=== PATIENT | male | born 1985 | race Caucasian/White ===

== ENCOUNTER 2020-09-20 12:06 | Emergency (ER) | payer OTHER, SELFPAY ==
[2020-09-20 12:09] VITALS: BP 94/59; PULSE 109; RESP 28; TEMP 36.5; O2SAT 100; BMI 35.2
--- NOTE | 2020-09-20 12:12 | CT_ITS ---
WS: [id number] CT ABDOMEN AND PELVIS WITH CONTRAST HISTORY: RUQ abd tenderness. n/v/d TECHNIQUE: Imaging performed of the abdomen and pelvis with IV contrast. Single phase imaging of the abdomen. Coronal and sagittal reformats are submitted. All CT scans at [facility] use at least one of these dose optimization techniques: automated exposure control; mA and/or kV adjustment per patient size (includes targeted exams where dose is matched to clinical indication); or iterativ e reconstruction. IV CONTRAST: Omnipaque 300; 95 mL IV. Oral contrast: No DLP: 1936.61 mGy.cm COMPARISON: None available. Lower thorax: Lung bases are clear. Heart is normal size. No hiatal hernia. Liver/biliary system: Mild hepatomegaly. No mass or bile duct dilatation. Gallbladder: Normal. No gallstones or wall thickening. No pericholecystic fluid. Pancreas: Normal size pancreas and pancreatic duct. No adjacent inflammation. Spleen: Normal size spleen. No mass or infarct. Adrenal glands: Normal. Right kidney: Normal. Left kidney: Normal. Aorta: Normal. Lymphadenopathy: None. Free fluid: None. GI tract: Prior appendectomy. Very mild mucosal edema in the ascending colon with no free fluid or ad jacent colonic inflammation. Abdominal wall: Unremarkable abdominal wall. No hernia. Pelvis: No free fluid or adenopathy within the pelvis. Bones: Unremarkable. CT/CT abdomen pelvis w con* [id number] IMPRESSION: 1. Mild ascending colon colitis. No free fluid or free air. 2. Prior appendectomy. 3. Mild hepatomegaly.
--- NOTE | 2020-09-20 12:12 | XR_ITS ---
WS: [id number] Portable AP upright chest, 09/20/2020 Clinical Data: reduced breath sounds Comparison: None. Findings: No nodules, masses or effusions are seen. The heart is normal. The pulmonary vascularity is not increased. No pneumonia or pneumothorax is seen. There are monitor leads overlying the chest wal l. XR/XR chest 1V portable [id number] Impression: Negative chest.
--- NOTE | 2020-09-20 12:14 | US_ITS ---
WS: [id number] RIGHT UPPER QUADRANT ULTRASOUND HISTORY: RUQ abd pain COMPARISON: None available. Liver: 17.9 cm in length. Mildly enlarged liver with mild hepatic steatosis. No mass or bile duct dil atation. Gallbladder: Normally distended gallbladder with no stones or wall thickening. CBD: 0.3 cm Pancreas: Head and the pancreas is obscured by bowel gas. Body is negative. Right kidney: 11.8 cm in length. Normal size and echogenicity. No hydronephrosis or mass. Aorta and IVC: Unremarkable abdominal aorta and IVC. No ascites. US/US abdomen limited [id number] IMPRESSION: 1. Mild hepatic steatosis and hepatomegaly. 2. Normal gallbladder.
[2020-09-20] MEDS: sodium chloride 0.9% 1,000 ML 999 ML IV (12:38)
[2020-09-20 12:39] LABS: Basophils # 0.1 10^3/uL (0.0-0.1); Basophils % 0.4 %; Eosinophils % 0.1 %; Hematocrit 43.7 % (42.0-52.0); Hemoglobin 15.2 g/dL (11.7-16.6); Lymphocytes # 1.9 10^3/uL (0.8-4.8); Mean Corpuscular HGB Conc 34.8 g/dL (30.0-36.0); Mean Corpuscular Hemoglobin 32.6 pg (28.0-34.0); Mean Corpuscular Volume 93.8 fL (80-94); Mean Platelet Volume 9.4 fL (7.4-10.4); Monocytes % 5.6 %; Neutrophils # 14.47 10^3/uL (1.8-7.7); Neutrophils % 82.2 %; Nucleated Red Blood Cells % 0 %; Platelet Count 309 10^3/cmm (130-400); Red Blood Count 4.66 10^6/uL (4.1-5.3); Red Cell Distribution Width 13.3 % (12.1-15.1); White Blood Count 17.6 10^3/uL (4.0-10.0)
[2020-09-20] MEDS: promethazine 25 mg/mL SDV 1 mL IM (12:40)
[2020-09-20] MEDS: ketorolac 30 mg/mL INJ 15 MG IVP (12:40)
[2020-09-20] MEDS: vancomycin 1,500 MG/300 ML PIGGYBACK 200 MG IV (12:56)
[2020-09-20] MEDS: iohexol 300 mg/mL 100 mL Btl IV (13:13)
[2020-09-20 13:16] LABS: Lactic Sepsis W/Reflex 2.5 mmol/L (0.5-2.2)
[2020-09-20 13:17] LABS: Alanine Aminotransferase 39 U/L (0-41); Albumin Level 4.8 g/dL (3.5-5.2); Alkaline Phosphatase 51 IU/L (40-130); Anion Gap 20.9 (5-19); Aspartate Amino Transferase 36 U/L (0-40); Blood Urea Nitrogen 33 mg/dL (6-20); Calcium 9.9 mg/dL (8.5-10.5); Carbon Dioxide 21 mmol/L (22-29); Chloride 100 mmol/L (98-107); Globulin 2.9 g/dL (1.3-4.6); Glomerular Filtration Rate 40.3 mL/min (90-130); Glucose 132 mg/dL (65-115); Lipase 68 U/L (13-60); Osmolality Calculated 295 mOsm/kg (285-295); Potassium 3.9 mmol/L (3.5-5.1); Sodium 138 mmol/L (136-145); Total Bilirubin 0.9 mg/dL (0.15-1.2); Total Protein 7.7 g/dL (6.6-8.7)
[2020-09-20 13:21] LABS: Alcohol Level < 10 mg/dL (0-10)
[2020-09-20 13:45] VITALS: BP 148/76; PULSE 105; RESP 18; O2SAT 98
[2020-09-20 14:25] LABS: Reflex Lactate Order REFLEX LACTIC ORDERD
[2020-09-20 14:32] VITALS: BP 138/52; PULSE 93; RESP 19; O2SAT 100
[2020-09-20 14:46] LABS: Add Urine Microscopic? YES; Bilirubin Urine Neg (Negative); Blood Urine 2+ (Negative); Glucose Urine UA Norm (Normal); Ketones Urine Negative (Negative); Leukocyte Esterase Urine Negative (Negative); Nitrate Urine Negative (Negative); Protein Urine 1+ (Negative); Specific Gravity, Urine 1.007 (1.005-1.030); Urine Appearance Hazy (CLEAR); Urine Color Yellow (Yellow); Urobilinogen Urine Norm (Negative); pH Urine 7 (5-7)
[2020-09-20 14:51] LABS: Amphetamines Screen Urine Negative (Negative); Barbiturates Screen Urine Negative (Negative); Benzodiazepines Screen Urine Negative (Negative); Cocaine Screen Urine Negative (Negative); Opiate Screen Urine Negative (Negative); PCP Screen Urine Negative (Negative); THC Screen Urine Negative (Negative)
[2020-09-20 15:05] LABS: Bacteria Urine TRACE /hpf; Mucus Urine 1+ /hpf; RBC Urine RARE /hpf (0-2); Squamous Epithelial Cell Urine 0-4 /hpf (0-5); WBC Urine 0-4 /hpf (0-5)
[2020-09-20 15:50] LABS: Lactic Acid level (Lactate) 1.3 mmol/L (0.5-2.2)
--- NOTE | 2020-09-20 16:03 | W.ED.GENADLT ---
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 He says he comes to the ER after he felt lightheaded and passed out. He says he passed out for maybe a few seconds at most and came to. Complains of right-sided abdominal pain. Also nausea. He reported one episode of a black stool but has had a normal stool since. Associated symptoms: Deny chest pain, confusion, dyspnea, headache(s), nausea, rash, palpitations or vomiting Review of Systems General: Reports: 10 or more systems reviewed and unremarkable except in HPI and below Const: Denies: fatigue Eyes: Denies: change in vision, blurry vision or eye redness ENMT: Denies: throat pain, swelling of lips/tongue, ear or mastoid pain or nasal congestion Card: Denies: chest pain, palpitations, irregular heart rhythm, edema, dyspnea on exertion or orthopnea Resp: Denies: dyspnea, productive cough or non-productive cough GI: Reports: abdominal pain; Denies: nausea, vomiting, diarrhea or GI cramping : Denies: flank pain, urinary frequency or urinary urgency Musc: Denies: neck pain, back pain, extremity pain, joint pain, joint redness, limited range of motion or muscle weakness Skin/Breast: Denies: rash, pruritus, erythema, skin pain or skin tenderness Neuro: Denies: headache(s), numbness in extremities, weakness in extremities, sensory changes, difficulty walking, dizziness, confusion or Slurred speech present Psych: Denies: anxiety or depression Endo: Denies: polyuria All/Imm: Denies: urticaria, throat swelling or tongue swelling PFSH ED PFSH: Social History (Updated 09/20/20 @ 12:17 by Austyn Lux RN) Smoking and tobacco status: never smoked Alcohol intake: current Alcohol intake frequency: few times a week Substance/Drug Use: never Physical Exam Const: COMMON NORMALS: no acute distress, average body habitus, patient oriented x3, no limitations, healthy appearing, alert and well nourished GENERAL APPEARANCE: cooperative, comfortable, well kempt and well developed ORIENTATION/CONSCIOUSNESS: Yes awake, Yes oriented to person, Yes oriented to place and Yes oriented to time HENMT: COMMON NORMALS: normocephalic, external ears normal and Normal external nose present HEAD & SCALP: normal to inspection and normocephalic NOSE: Normal external nose present EXTERNAL EAR: Yes external ears normal MOUTH: Normal oral and palatal mucosa present THROAT: posterior oropharynx normal Eye: COMMON NORMALS: Equal, round and reactive pupils present and EOMs intact bilaterally GENERAL EYE: appearance normal, both eyes and all related structures PUPIL: Yes Equal, round and reactive pupils present Neck/C-Spine: COMMON NORMALS: full ROM, no lymphadenopathy, no meningeal signs and no JVD GENERAL: Yes normal visual inspection Lymph: LYMPHATIC: no lymphadenopathy noted Chest: COMMONS NORMALS: normal inspection of the chest and normal palpation of entire chest wall Resp: COMMON NORMALS: normal respiratory effort, No retractions, No use of accessory muscles, clear to auscultation bilaterally and percussion normal EFFORT & INSPECTION: Yes able to speak in complete sentences AUSCULTATION: clear to auscultation bilaterally PERCUSSION: percussion normal Cardio: COMMON NORMALS: no JVD, regular rate, regular rhythm, S1 normal heart sound present, S2 normal heart sound present and Peripheral pulses 2+ throughout RATE: regular rate RHYTHM: regular rhythm HEART SOUNDS: S1 normal heart sound present and S2 normal heart sound present PERIPHERAL PULSES: Peripheral pulses 2+ throughout GI: COMMON NORMALS: Normal to inspection, nondistended, normoactive bowel sounds present, Soft to palpation and no masses INSPECTION: Yes normal to inspection PALPATION: Yes Soft to palpation and Yes Tenderness to palpation present (GI) GI image (male): 1. Mild abdominal tenderness : COMMON NORMALS: Yes no CVA tenderness BLADDER/KIDNEY EXAM: Yes no CVA tenderness Back/Pelvis: COMMON NORMALS: no CVA tenderness, thoracic and lumbar spine normal to inspection, no thoracic nor lumbar tenderness and thoraco-lumbar ROM normal Extremity: COMMON NORMALS: normal to inspection, full ROM, capillary refill normal, no joint enlargement and no pedal edema GENERAL: Yes normal exam except as noted Neuro: COMMON NORMALS: patient oriented x3, CN's II-XII intact bilaterally, moves all extremities, no focal motor deficits, no sensory deficits noted and gait normal SENSORIUM/ORIENTATION: Yes alert, Yes oriented to person, Yes oriented to place and Yes oriented to time MENINGEAL SIGNS: Yes no meningeal signs Psych: COMMON NORMALS: mental status grossly normal, Normal thought process present, cooperative, normal affect and speech normal APPEARANCE: Yes well kempt ATTITUDE: Yes calm SPEECH: Yes normal speech THOUGHT PROCESS: Normal thought process present Skin: COMMON NORMALS: no rashes or lesions noted GENERAL SKIN EXAM: no rashes or lesions noted Course Vital Signs: Vital signs: Vital Signs Temperature 97.7 F 09/20/20 12:09 Pulse Rate 93 09/20/20 14:32 Respiratory Rate 19 H 09/20/20 14:32 Blood Pressure 138/52 09/20/20 14:32 Pulse Oximetry 100 09/20/20 14:32 MDM - General Adult MDM Narrative: Medical decision making narrative: Patient came to the ER after an episode he is awake with mildly low blood pressure 94/59 and tachycardia 109. He was given 2 L IV fluids and his white count was 17.[address] shows Right-sided colitis which is consistent with his abdominal pain that he was feeling. He feels much improved after fluids. Creatinine mildly elevated 1.9 with BUN 33. Likely from dehydration consistent with his syncope. He will be discharged with Cipro and Flagyl and told to drink lots of fluids and follow-up with primary care physician in a couple days. ER with worsening symptoms Lab Data: Labs: Lab Results 09/20/20 09/20/20 09/20/20 Range/Units 12:30 12:30 12:30 WBC 17.6 H (4.0-10.0) 10^3/ uL RBC 4.66 (4.1-5.3) 10^6/u L Hgb 15.2 (11.7-16.6) g/dL Hct 43.7 (42.0-52.0) % MCV 93.8 (80-94) fL MCH 32.6 (28.0-34.0) pg MCHC 34.8 (30.0-36.0) g/dL RDW 13.3 (12.1-15.1) % Plt Count 309 (130-400) 10^3/c mm MPV 9.4 (7.4-10.4) fL Neut % (Auto) 82.2 % Lymph % (Auto) 11.0 % [place] % (Auto) 5.6 % Eos % (Auto) 0.1 % Baso % (Auto) 0.4 % Neut # (Auto) 14.47 H (1.8-7.7) 10^3/u L Lymph # (Auto) 1.9 (0.8-4.8) 10^3/u L [place] # (Auto) 1.0 H (0.2-0.9) 10^3/u L Eos # (Auto) 0.0 (0.0-0.8) 10^3/u L Baso # (Auto) 0.1 (0.0-0.1) 10^3/u L Nucleated RBC % (a uto) 0 % Nucleated RBCs # 0.0 /100WBC Sodium 138 (136-145) mmol/L Potassium 3.9 (3.5-5.1) mmol/L Chloride 100 (98-107) mmol/L Carbon Dioxide 21 L (22-29) mmol/L Anion Gap 20.9 H (5-19) BUN 33 H (6-20) mg/dL Creatinine 1.9 H (0.7-1.2) mg/dL GFR Calculation 40.3 L (90-130) mL/min Glucose 132 H (65-115) mg/dL Calculated Osmolal ity 295 (285-295) mOsm/k g Lactic Acid 2.5 H (0.5-2.2) mmol/L Lactic Acid (Sepsi s) (0.5-2.2) mmol/L Calcium 9.9 (8.5-10.5) mg/dL Total Bilirubin 0.9 (0.15-1.2) mg/dL AST 36 (0-40) U/L ALT 39 (0-41) U/L Alkaline Phosphata se 51 (40-130) IU/L Total Protein 7.7 (6.6-8.7) g/dL Albumin 4.8 (3.5-5.2) g/dL Globulin 2.9 (1.3-4.6) g/dL Lipase 68 H (13-60) U/L Urine Color (Yellow) Urine Appearance (CLEAR) Urine pH (5-7) Ur Specific Gravit y (1.005-1.030) Urine Protein (Negative) Urine Glucose (UA) (Normal) Urine Ketones (Negative) Urine Blood (Negative) Urine Nitrate (Negative) Urine Bilirubin (Negative) Urine Urobilinogen (Negative) mg/dL Ur Leukocyte [place] ase (Negative) Urine RBC (0-2) /hpf Urine WBC (0-5) /hpf Ur Squamous Epith Cells (0-5) /hpf Amorphous Sediment Urine Bacteria (NONE) /hpf Urine Mucus /hpf Urine Opiates Scre en (Negative) ng/mL Ur Barbiturates Sc reen (Negative) ng/mL Ur Phencyclidine S crn (Negative) ng/mL Ur Amphetamines Sc reen (Negative) ng/mL U Benzodiazepines Scrn (Negative) ng/mL Urine Cocaine Scre en (Negative) ng/mL U Marijuana (THC) Screen (Negative) ng/mL Ethyl Alcohol < 10 (0-10) mg/dL 09/20/20 09/20/20 09/20/20 Range/Units 14:34 14:34 15:10 WBC (4.0-10.0) 10^3/ uL RBC (4.1-5.3) 10^6/u L Hgb (11.7-16.6) g/dL Hct (42.0-52.0) % MCV (80-94) fL MCH (28.0-34.0) pg MCHC (30.0-36.0) g/dL RDW (12.1-15.1) % Plt Count (130-400) 10^3/c mm MPV (7.4-10.4) fL Neut % (Auto) % Lymph % (Auto) % [place] % (Auto) % Eos % (Auto) % Baso % (Auto) % Neut # (Auto) (1.8-7.7) 10^3/u L Lymph # (Auto) (0.8-4.8) 10^3/u L [place] # (Auto) (0.2-0.9) 10^3/u L Eos # (Auto) (0.0-0.8) 10^3/u L Baso # (Auto) (0.0-0.1) 10^3/u L Nucleated RBC % (a uto) % Nucleated RBCs # /100WBC Sodium (136-145) mmol/L Potassium (3.5-5.1) mmol/L Chloride (98-107) mmol/L Carbon Dioxide (22-29) mmol/L Anion Gap (5-19) BUN (6-20) mg/dL Creatinine (0.7-1.2) mg/dL GFR Calculation (90-130) mL/min Glucose (65-115) mg/dL Calculated Osmolal ity (285-295) mOsm/k g Lactic Acid (0.5-2.2) mmol/L Lactic Acid (Sepsi s) 1.3 (0.5-2.2) mmol/L Calcium (8.5-10.5) mg/dL Total Bilirubin (0.15-1.2) mg/dL AST (0-40) U/L ALT (0-41) U/L Alkaline Phosphata se (40-130) IU/L Total Protein (6.6-8.7) g/dL Albumin (3.5-5.2) g/dL Globulin (1.3-4.6) g/dL Lipase (13-60) U/L Urine Color Yellow (Yellow) Urine Appearance Hazy A (CLEAR) Urine pH 7 (5-7) Ur Specific Gravit y 1.007 (1.005-1.030) Urine Protein 1+ H (Negative) Urine Glucose (UA) Norm (Normal) Urine Ketones Negative (Negative) Urine Blood 2+ H (Negative) Urine Nitrate Negative (Negative) Urine Bilirubin Neg (Negative) Urine Urobilinogen Norm (Negative) mg/dL Ur Leukocyte [place] ase Negative (Negative) Urine RBC Rare (0-2) /hpf Urine WBC 0-4 H (0-5) /hpf Ur Squamous Epith Cells 0-4 H (0-5) /hpf Amorphous Sediment Not Reportable Urine Bacteria Trace (NONE) /hpf Urine Mucus 1+ /hpf Urine Opiates Scre en Negative (Negative) ng/mL Ur Barbiturates Sc reen Negative (Negative) ng/mL Ur Phencyclidine S crn Negative (Negative) ng/mL Ur Amphetamines Sc reen Negative (Negative) ng/mL U Benzodiazepines Scrn Negative (Negative) ng/mL Urine Cocaine Scre en Negative (Negative) ng/mL U Marijuana (THC) Screen Negative (Negative) ng/mL Ethyl Alcohol (0-10) mg/dL Discharge Plan Discharge Patient Disposition: Home Clinical Impression: Syncope, Acute dehydration, Colitis, Acute kidney injury Condition: Stable Prescriptions: New ciprofloxacin HCl 500 mg tablet 500 mg PO Q12H 10 Days Qty: 20 RF: 0 Flagyl 500 mg tablet 500 mg PO BID 10 Days Qty: 20 RF: 0 No Action Aspir-81 81 mg Tablet,Delayed Release (Dr/Ec) 81 mg PO BEDTIME RF: 0 ibuprofen 200 mg Tablet 400 mg PO PRN RF: 0 Discharge Orders: Discharge ED (Routine); Ordered 09/20/20 Ordered By: Justin Smith Discharge Diet: Advance as tolerated Discharge Activity: Resume usual activity Patient Instructions: Opioid Safety Activity Restrictions/Additional Instructions: You have an episode of colitis and dehydration causing you to pass out briefly. Please drink lots of fluids, take the antibiotics as directed, and have your blood work including your kidneys and white blood cell count rechecked in a couple days by your primary care physician. Return to the ER at anytime with worsening symptoms and we will reevaluate and treat you. Please make sure to get your kidneys rechecked as if you do not and they worsen you could require dialysis. Coding Level of Care Code ED Metal Alloy Scientist for Mayank Fwd Exam Comprehensive
[2020-09-20 16:43] VITALS: BP 136/82; PULSE 96; RESP 17; O2SAT 100
== END 2020-09-20 16:44 | disposition home or self-care (01) ==
PROVIDERS: Emergency Provider Family Medicine
DX: R55 Syncope and collapse (principal); E86.0 Dehydration; K52.9 Noninfective gastroenteritis and colitis, unspecified; N17.9 Acute kidney failure, unspecified; Z79.82 Long term (current) use of aspirin
CPT/HCPCS: 36415; 71045; 74177; 76705; 80053; 80306; 80307; 81001; 83605; 83690; 85025; 96365; 96372; 96375; 99284; J1885; J2550; J3370; J7030; Q9967

== ENCOUNTER → 2021-01-02 09:12 | Outpatient (BNVA) | payer OTHER, SELFPAY | PROVIDERS: Visit Provider Nurse Practitioner Family | DX: Z20.822 Contact with and (suspected) exposure to COVID-19 (principal); Z11.52 Encounter for screening for COVID-19 | CPT/HCPCS: 87635 ==

== ENCOUNTER 2022-11-05 22:34 | Inpatient (IN) | payer MEDICAID, SELFPAY ==
[2022-11-05] VITALS (9 sets, daily range): BP systolic 160–181; BP diastolic 102–131; PULSE 88–100; RESP 18; TEMP 37; O2SAT 90–96; BMI 35.9
--- NOTE | 2022-11-05 22:40 | W.ED.PSYCHS ---
HPI - Psych General: Chief Complaint: Psychiatric Symptoms Stated Complaint: SI/ETOH Time Seen by Provider: 11/05/22 22:35 Source: patient and EMS Mode of arrival: EMS Limitations: no limitations History of Present Illness: 28-year-old male who is here by EMS been drinking heavily over the last 24 hours per EMS he is drank three quarters of a bottle of whiskey per EMS family called because he states he is in a kill himself and had a gun and put it in his mouth. Per EMS he was combative in route they had to give him 2 of Ativan he is now sedated he is answering some questions but will not answer many at this time. Associated symptoms: Reports depression and suicidal ideation Review of Systems Const: Denies: fever(s) or chills ENMT: Denies: throat pain or dental pain Card: Denies: chest pain Resp: Denies: dyspnea GI: Denies: abdominal pain, nausea, vomiting or diarrhea Musc: Denies: neck pain or back pain Skin/Breast: Denies: rash Neuro: Denies: headache(s) Psych: Reports: depression and suicidal ideation PFS ED PFSH: Social History Smoking and tobacco status: never smoked Alcohol intake: current Alcohol intake frequency: few times a week Substance/Drug Use: never Physical Exam Const: COMMON NORMALS: patient oriented x3 OTHER: intoxicated HENMT: COMMON NORMALS: normocephalic and atraumatic HEAD & SCALP: normocephalic and atraumatic Eye: COMMON NORMALS: Equal, round and reactive pupils present PUPIL: Yes Equal, round and reactive pupils present Neck/C-Spine: COMMON NORMALS: full ROM and supple Chest: COMMONS NORMALS: normal inspection of the chest and normal palpation of entire chest wall Resp: COMMON NORMALS: normal respiratory effort, No retractions, No use of accessory muscles and clear to auscultation bilaterally AUSCULTATION: clear to auscultation bilaterally Cardio: COMMON NORMALS: regular rate, regular rhythm and No murmurs present (Cardio) RATE: regular rate RHYTHM: regular rhythm GI: COMMON NORMALS: Normal to inspection, nondistended, normoactive bowel sounds present, Soft to palpation, non-tender and no masses PALPATION: Yes Soft to palpation Extremity: COMMON NORMALS: normal to inspection and full ROM Neuro: COMMON NORMALS: patient oriented x3, moves all extremities and no focal motor deficits Psych: COMMON NORMALS: mental status grossly normal and Normal thought process present THOUGHT PROCESS: Normal thought process present THOUGHT CONTENT: Yes Suicidality present Skin: COMMON NORMALS: no rashes or lesions noted and no wounds GENERAL SKIN EXAM: no rashes or lesions noted Course Vital Signs: Vital signs: Vital Signs Temperature 98.6 F 11/05/22 22:34 Pulse Rate 86 11/06/22 04:30 Respiratory Rate 14 11/06/22 04:00 Blood Pressure 157/102 11/06/22 04:30 Pulse Oximetry 97 11/06/22 03:45 Oxygen Delivery Me thod Room Air 11/06/22 03:45 MDM - Psych Medical Decision Making Patient presents for suicidal ideation along with alcohol intoxication patient's been medically cleared spoke to the psychiatrist and will admit at this time. Medical Records I reviewed the patient's medical records. Lab Data I reviewed the patient's lab results. 11/05/22 22:41 11/05/22 22:41 Radiology Impressions Chest X-Ray 11/06/22 02:35 IMPRESSION: 1. No definite CHF or pneumonia. 2. Other findings discussed above. Laboratory Results WBC 9.1 10^3/uL (4.0-10.0) 11/05/22 22:41 RBC 4.58 10^6/uL (4.1-5.3) 11/05/22 22:41 Hgb 15.6 g/dL (11.7-16.6) 11/05/22 22:41 Hct 43.2 % (42.0-52.0) 11/05/22 22:41 MCV 94.3 fl (80-94) H 11/05/22 22:41 MCH 34.1 pg (28.0-34.0) H 11/05/22 22:41 MCHC 36.1 g/dL (30.0-36.0) H 11/05/22 22:41 RDW 12.7 % (12.1-15.1) 11/05/22 22:41 Plt Count 419 10^3/cmm (130-400) H 11/05/22 22:41 MPV 8.2 fL (7.4-10.4) 11/05/22 22:41 Neut % (Auto) 69.4 % 11/05/22 22:41 Lymph % (Auto) 21.9 % 11/05/22 22:41 [place] % (Auto) 6.6 % 11/05/22 22:41 Eos % (Auto) 0.8 % 11/05/22 22:41 Baso % (Auto) 0.9 % 11/05/22 22:41 Neut # (Auto) 6.28 10^3/uL (1.8-7.7) 11/05/22 22:41 Lymph # (Auto) 2.0 10^3/uL (0.8-4.8) 11/05/22 22:41 [place] # (Auto) 0.6 10^3/uL (0.2-0.9) 11/05/22 22:41 Eos # (Auto) 0.1 10^3/uL (0.0-0.8) 11/05/22 22:41 Baso # (Auto) 0.1 10^3/uL (0.0-0.1) 11/05/22 22:41 Nucleated RBC % (auto) 0 % 11/05/22 22:41 Nucleated RBCs # 0.0 /100WBC 11/05/22 22:41 Sodium 143 mmol/L (136-145) 11/05/22 22:41 Potassium 3.6 mmol/L (3.5-5.1) 11/05/22 22:41 Chloride 102 mmol/L (98-107) 11/05/22 22:41 Carbon Dioxide 24 mmol/L (22-29) 11/05/22 22:41 Anion Gap 20.6 (5-19) H 11/05/22 22:41 BUN 7 mg/dL (6-20) 11/05/22 22:41 Creatinine 0.8 mg/dL (0.7-1.2) 11/05/22 22:41 GFR Calculation 108.2 mL/min (90-130) 11/05/22 22:41 Glucose 147 mg/dL (65-115) H 11/05/22 22:41 Calculated Osmolality 297 mOsm/kg (285-295) H 11/05/22 22:41 Calcium 8.4 mg/dL (8.5-10.5) L 08/09/23 22:41 Total Bilirubin 0.5 mg/dL (0.15-1.2) 11/05/22 22:41 AST 59 U/L (0-40) H 11/05/22 22:41 ALT 59 U/L (0-41) H 11/05/22 22:41 Alkaline Phosphatase 73 U/L (40-130) 11/05/22 22:41 Total Protein 7.7 g/dL (6.6-8.7) 11/05/22 22:41 Albumin 4.4 g/dL (3.5-5.2) 11/05/22 22:41 Globulin 3.3 g/dL (1.3-4.6) 11/05/22 22:41 Lipase 53 U/L (13-60) 11/05/22 22:41 Salicylates 1.1 mg/dL (3-10) L 11/05/22 22:41 Urine Opiates Screen Negative ng/mL (Negative) 11/05/22 22:51 Acetaminophen 6.9 ug/mL (10-30) L 11/05/22 22:41 Ur Barbiturates Screen Negative ng/mL (Negative) 11/05/22 22:51 Ur Phencyclidine Scrn Negative ng/mL (Negative) 11/05/22 22:51 Ur Amphetamines Screen Negative ng/mL (Negative) 11/05/22 22:51 U Benzodiazepines Scrn Negative ng/mL (Negative) 11/05/22 22:51 Urine Cocaine Screen Negative ng/mL (Negative) 11/05/22 22:51 U Marijuana (THC) Screen Negative ng/mL (Negative) 11/05/22 22:51 Ethyl Alcohol 306 mg/dL (0-10) H* 11/05/22 22:41 Discharge Plan Discharge Patient Disposition: Admitted As Inpatient Clinical Impression: Suicidal ideation, Alcohol intoxication Condition: Stable Coding Level of Care Code ED Press Operator Printing for Mayank Topete
[2022-11-05 22:47] LABS: Basophils # 0.1 10^3/uL (0.0-0.1); Basophils % 0.9 %; Eosinophils # 0.1 10^3/uL (0.0-0.8); Eosinophils % 0.8 %; Hematocrit 43.2 % (42.0-52.0); Hemoglobin 15.6 g/dL (11.7-16.6); Lymphocytes % 21.9 %; Mean Corpuscular HGB Conc 36.1 g/dL (30.0-36.0); Mean Corpuscular Hemoglobin 34.1 pg (28.0-34.0); Mean Corpuscular Volume 94.3 fl (80-94); Mean Platelet Volume 8.2 fL (7.4-10.4); Monocytes # 0.6 10^3/uL (0.2-0.9); Monocytes % 6.6 %; Neutrophils # 6.28 10^3/uL (1.8-7.7); Neutrophils % 69.4 %; Nucleated Red Blood Cells % 0 %; Platelet Count 419 10^3/cmm (130-400); Red Blood Count 4.58 10^6/uL (4.1-5.3); Red Cell Distribution Width 12.7 % (12.1-15.1); White Blood Count 9.1 10^3/uL (4.0-10.0)
[2022-11-05 23:10] LABS: Acetaminophen 6.9 ug/mL (10-30); Alanine Aminotransferase 59 U/L (0-41); Albumin Level 4.4 g/dL (3.5-5.2); Alkaline Phosphatase 73 U/L (40-130); Anion Gap 20.6 (5-19); Aspartate Amino Transferase 59 U/L (0-40); Blood Urea Nitrogen 7 mg/dL (6-20); Calcium 8.4 mg/dL (8.5-10.5); Carbon Dioxide 24 mmol/L (22-29); Chloride 102 mmol/L (98-107); Globulin 3.3 g/dL (1.3-4.6); Glomerular Filtration Rate 108.2 mL/min (90-130); Glucose 147 mg/dL (65-115); Osmolality Calculated 297 mOsm/kg (285-295); Potassium 3.6 mmol/L (3.5-5.1); Salicylate 1.1 mg/dL (3-10); Sodium 143 mmol/L (136-145); Total Bilirubin 0.5 mg/dL (0.15-1.2); Total Protein 7.7 g/dL (6.6-8.7)
[2022-11-05 23:30] LABS: Alcohol Level 306 mg/dL (0-10)
[2022-11-05 23:31] LABS: Amphetamines Screen Urine Negative (Negative); Barbiturates Screen Urine Negative (Negative); Benzodiazepines Screen Urine Negative (Negative); Cocaine Screen Urine Negative (Negative); Opiate Screen Urine Negative (Negative); PCP Screen Urine Negative (Negative); THC Screen Urine Negative (Negative)
[2022-11-06] VITALS (82 sets, daily range): BP systolic 131–194; BP diastolic 74–131; PULSE 86–144; RESP 12–43; TEMP 36.4–36.9; O2SAT 90–98
--- NOTE | 2022-11-06 00:08 | PC.NURSE ---
Patient 96 Hour Hold Rights have been read to the patient and a copy of the same was given to him. chief communications officer Britton was present at bedside.
--- NOTE | 2022-11-06 00:16 | PC.NURSE ---
pt appears to be resting with no acute distress. pt currently on mine engineer. all needs met at this time.
--- NOTE | 2022-11-06 02:11 | ECG_ITS ---
[facility] Test Date: 2022-11-06 Pat Name: John Paul Rodríguez Department: Room: Gender: Male Professional Shopper: : 1985 Requested By: Randolph Toledo Order Number: [id number] Stacey MD: Florencio Ellis M.D. Measurements Intervals [place] Rate: 93 P: 65 CT: 156 QRS: 39 QRSD: 90 T: 39 QT: 378 QTc: 472 Interpretive Statements SINUS RHYTHM No previous ECG available for comparison Electronically Signed On 11-07-2022 9:27:42 CDT by Florencio Ellis M.D. [id number] f
[2022-11-06 02:35] LABS: Lipase 53 U/L (13-60)
--- NOTE | 2022-11-06 02:35 | XRR_ITS ---
PROCEDURE INFORMATION: Exam: XR Chest Exam date and time: 11/06/2022 2:49 AM Age: 36 years old Clinical indication: Pain; Chest pressure; Additional info: Cp TECHNIQUE: Imaging protocol: Radiologic exam of the chest. Views: 1 view. COMPARISON: CR XR chest 1V portable [id number] 09/20/2020 12:37 PM FINDINGS: Lungs: No CHF/pulmonary edema. Visible lungs appear essentially clear. Pleural spaces: No visible pneumothorax. No definite pleural fluid. Heart/Mediastinum: Heart size is within normal limits. Bones/joints: No significant acute finding. XR/XR chest 1V portable [id number] IMPRESSION: 1. No definite CHF or pneumonia. 2. Other findings discussed above.
[2022-11-06] MEDS: multivitamin therapeutic Tablet 1 TAB PO (02:38)
[2022-11-06] MEDS: HYDROcodone-acetaminophen 5-325 mg Tablet 1 TAB PO (02:40)
[2022-11-06] MEDS: labetalol 5 mg/mL SDV 20mL 10 MG IVP (03:39)
--- NOTE | 2022-11-06 03:55 | PC.NURSE ---
pt AOx4. pt is up and asking questions, able to hold conversation.
[2022-11-06] MEDS: ondansetron 2 mg/ML SDV 2 mL 4 MG IVP (05:35)
[2022-11-06] MEDS: sodium chloride 0.9% 1,000 ML 999 ML IV (05:38)
[2022-11-06] MEDS: hyDRALAzine 20 mg/mL INJ 1 mL 10 MG IVP (05:40)
--- NOTE | 2022-11-06 07:10 | PC.NURSE ---
Report from AMPARO Oconnor. Pt sleeping at this time.
--- NOTE | 2022-11-06 09:00 | PC.NURSE ---
Pt provided food tray.
[2022-11-06] MEDS: hyDROXYzine 25 mg Capsule 50 MG PO (12:21)
[2022-11-06] MEDS: OLANZapine 5 mg ODT PO (12:21)
[2022-11-06] MEDS: ondansetron 4 MG Tablet PO (12:22)
--- NOTE | 2022-11-06 12:38 | PC.NURSE ---
Lunch tray provided. Pt remains calm and cooperative. C/O nausea and anxiety. Meds given.
[2022-11-06] MEDS: LORazepam 2 mg Tablet PO ×3 (14:18→22:42)
[2022-11-06] MEDS: hyDRALAzine 20 mg/mL INJ 1 mL IM (14:19)
--- NOTE | 2022-11-06 20:02 | ECG_ITS ---
[facility] Test Date: 2022-11-06 Pat Name: John Paul Rodríguez Department: Room: 151 Gender: Male Osteopathic Physician: : 1985 Requested By: Kennedy Goss Order Number: [id number] Ibarra MD: Florencio Ellis M.D. Measurements Intervals [place] Rate: 129 P: 60 [place]: 142 QRS: 19 QRSD: 80 T: 19 QT: 328 QTc: 481 Interpretive Statements SINUS TACHYCARDIA Compared to ECG 11/06/2022 02:11:09 Sinus rhythm no longer present Electronically Signed On 11-07-2022 9:25:54 CDT by Florencio Ellis M.D. [id number]
[2022-11-06] MEDS: cloNIDine 0.1 mg Tablet PO ×2 (20:14→22:04)
--- NOTE | 2022-11-06 23:21 | ECG_ITS ---
[facility] Test Date: 2022-11-06 Pat Name: John Paul Rodríguez Department: Room: 151 Gender: Male Cadd Technician: : 1985 Requested By: Kennedy Goss Order Number: [id number] Stacey MD: Florencio Ellis M.D. Measurements Intervals [place] Rate: 112 P: 58 [place]: 152 QRS: 14 QRSD: 85 T: 12 QT: 346 QTc: 473 Interpretive Statements SINUS TACHYCARDIA POSSIBLE LEFT ATRIAL ENLARGEMENT [-0.1mV P-WAVE IN V1/V2] ABNORMAL RHYTHM ECG Compared to ECG 11/06/2022 20:10:49 No significant changes Electronically Signed On 11-07-2022 9:25:18 CDT by Florencio Ellis M.D. [id number]
[2022-11-07 00:26] VITALS: BP 144/98
[2022-11-07 06:00] VITALS: BP 153/99; PULSE 102; RESP 18; TEMP 36.4; O2SAT 93
--- NOTE | 2022-11-07 07:07 | P.NPUHP_ITS ---
Providers/Chief Complaint Admitting Physician: Kennedy Goss MD Primary Care Provider: Yumi Mehta MD Chief Complaint: SI/ETOH HPI NPU History of Present Illness John Paul Rodríguez is a 36 year old male who presented to the emergency department with the following report: Chief Complaint: Psychiatric Symptoms Stated Complaint: SI/ETOH Time Seen by Provider: 11/05/22 22:35 Source: patient and EMS Mode of arrival: EMS Limitations: no limitations History of Present Illness: 28-year-old male who is here by EMS been drinking heavily over the last 24 hours per EMS he is drank three quarters of a bottle of whiskey per EMS family called because he states he is in a kill himself and had a gun and put it in his mouth. Per EMS he was combative in route they had to give him 2 of Ativan he is now sedated he is answering some questions but will not answer many at this time. Associated symptoms: Reports depression and suicidal ideation The patient was admitted to the neuropsychiatric unit for definitive treatment of those issues. The patient presents reporting that he is not on psychiatric medications and has not had previous psychiatric hospitalizations. He denies outpatient services. He reports that he is here on a 96-hour hold secondary to getting intoxicated and making suicidal statements. The patient reports that he chews tobacco, about a can a day. He reports that he drinks alcohol daily, about a full bottle a day. He denies marijuana, cocaine, methamphetamine, opiates, or any other illicit drug use. He denies DUI or other drug related charges. He reports that recently he has had some depression. He endorses feelings of hopel essness, helplessness, worthlessness, sleep difficulties, loss of enjoyment, and passive wish. He denies previous suicidal thoughts, until this time being drunk. He endorses that he had a gun and put it in his mouth. He denies self- injurious behavior. He denies paranoia or auditory or visual hallucinations. He denies nightmares or flashbacks from trauma. We discussed that he is currently on CIWA protocol. And we discussed concerns about hypertension that we are monitoring. We discussed the risks, benefits, and alternatives of trying something, like Prozac, for depression, and he understood and agreed to proceed as is documented in this note. PSYCHIATRIC HISTORY: As above. SUBSTANCE ABUSE HISTORY: As above. FAMILY HISTORY: The patient reports that he had a cousin, on dad?s side of the family, with mental health issues. He reports that his father was an alcoholic. He denies suicide attempts or completions in the family. DEVELOPMENTAL HISTORY: The patient denies any issues with his mother?s or delivery of him. He learned to walk and talk and met developmental milestones on time. The patient denies speech therapy, learning support, emotional support, or special education classes. PSYCHOSOCIAL HISTORY: The patient reports that mother and father were together when he was born and remain together. He reports that he has a younger sister from that same union. He denies any other children. He describes his childhood as pretty normal. He denies any neglect, or emotional, physical, or sexual abuse. He denies CYS involvement. He denies any childhood traumas. He reports that his sister passed on in 2014. She had meningitis and had a headache on Thursday and by Thursday, , they pronounced her brain . A year later his grandfat her on the same day. He reports that his sister?s birthday is coming up. He reports that he graduated from high school. He reports that he took a couple college courses. He endorses being heterosexual, with his longest relationship being almost eleven years. He has been once and once. He reports that he has three biological children, 14 and 16 year old boys, and a 12 year old girl. He denies service. He denies a methodist belief system. He reports that his longest job was about three and a half years. He reports that he currently works for [employer]. He reports that he currently lives in a house he is renting with his three children. Their mother lives in [place], [place]. LEGAL HISTORY: Denied. MEDICAL HISTORY: Denied. The patient reports allergy to MMR shot and lavender. Meds NPU Home Medications Medication Instructions Recorded Confirmed Last Taken Type aspirin 81 mg tablet,delayed 81 mg PO BEDTIME 09/20/20 11/06/22 09/19/20 History release ibuprofen 200 mg tablet 400 mg PO PRN 09/20/20 11/06/22 Unknown History Allergies Allergy/AdvReac Type Severity Reaction Status Date / Time mmr shot Allergy Unknown Uncoded 09/20/20 12:44 PFS NPU [facility]: Medical History (Updated 08/12/23 @ 08:31 by Kennedy Goss MD) History of alcoholism Surgical History (Updated 11/07/22 @ 16:36 by Augusto Bradford MD) History of appendectomy Social History Smoking and tobacco status: never smoked Alcohol intake: current Alcohol intake frequency: few times a week Substance/Drug Use: never Mental Status Exam MSE Comments: This is an overweight versus obese white male, in hospital scrubs, with limited grooming and eye contact. Very large sifuentes and overall unkempt appearance. No abnormal movements except for significant psychomotor retardation. Cooperative with exam in mild to moderate distress. Speech was decreased rate and volume. Mood described as lethargic; affect congruent. Thought process, organized. Thought content: patient denied any suicidal or homicidal ideation, there were no delusions reported or noted, patient denied any auditory or visual hallucinations. Attention, concentration, and memory appeared intact, but none were formally tested. Alert and oriented times three. Insight and judgment are limited. Impulse control is impaired Vitals/I&O/Wt Last Vital Signs Temp 97.6 F 11/07/22 06:00 Pulse 102 H 11/07/22 06:00 Resp 18 11/07/22 06:00 BP 153/99 11/07/22 06:00 Pulse Ox 93 11/07/22 06:00 O2 Del Method Room Air 11/07/22 06:00 Weight last 48 hrs Weight 113.398 kg Data NPU 11/07/22 18:40 11/07/22 18:40 A&P Assessment and plan (1) Gouty arthritis: (2) Hypertensive urgency: (3) Suicidal ideation: (4) Alcohol intoxication: (5) Major depressive disorder: (6) Bereavement: (7) Alcohol use disorder, severe, dependence: Plan This is a 36, almost 37-year-old, white male, who presents after having an incident where he was intoxicated and made suicidal threats, who is open to a trial of medication for depression. 1. Start Prozac 20 mg p.o. every morning. 2. Encourage individual, group, and milieu therapy. 3. Continue q-15-minute checks for safety. 4. Recommend sober living treatment at the highest level of care to which the patient is willing to commit. Involuntary Hold Information 96 Hour Hold: 96 Hour Involuntary Admission: Yes 96 Hour Hold Ending Date: 11/11/22 96 Hour Hold Ending Time: 23:00 Attestations NPU Medical Necessity Statement*: Inpatient hospitalization is medically necessary and the clinically appropriate intervention, at this time. We will monitor medications and make changes as indicated. Patient will be in the hospital for over two midnights. Likely length of stay is three to five days. Coding Level of Care Code Acute Code for [facility] Fwd Diagnoses Gouty arthritis M10.9 Hypertensive urgency I16.0 Suicidal ideation R45.851 Alcohol intoxication F10.929 Major depressive disorder F32.9 Bereavement Z63.4 Alcohol use disorder, severe, dependence F10.20
[2022-11-07] MEDS: folic acid 1 mg Tablet PO (09:02)
[2022-11-07] MEDS: ibuprofen 600 mg Tablet PO (09:02)
[2022-11-07] MEDS: multivitamin therapeutic Tablet 1 TAB PO (09:02)
[2022-11-07] MEDS: thiamine 100 mg Tablet PO (09:03)
[2022-11-07] MEDS: haloperidol 5 mg Tablet PO (09:03)
--- NOTE | 2022-11-07 09:05 | PC.NURSE ---
PT UP IN BED AFTER EATING BREAKFAST. PT MUMBLES WHEN HE SPEAKS AND IS DIFFICULT TO UNDERSTAND AT TIMES. PT REPORTS TO RN THAT HE HAS GOUT IN HIS FEET, WALKS BAREFOOT EVERYWHERE HE GOES AND HAS CALLOUSES ON HIS FEET. FEET WERE OBSERVED TO BE BLACK, DIRTY AND CALLOUSED. REPORTS BACK PAIN 07/07 MED NURSE NOTIFIED. DENIES SI/HI AND AH. DOES REPORT VH, STATES HE SEES HIS DAD STANDING OVER HIM OR STANDING IN FRONT OF HIM ALL THE TIME. RN INFORMED PT MED NURSE WOULD GIVE HIM IBUPROFEN AND HALDOL PT STATES I'M GOOD WITH THAT. PTS BP THIS AM WAS 156/99. PT WAS INFORMED RN WOULD SPEAK TO DR. CHILDERS ABOUT GETTING A HOSPITALIST TO SEE HIM. PT WAS HAPPY TO HEAR THAT.
[2022-11-07 09:12] VITALS: BP 156/99
[2022-11-07] MEDS: cloNIDine 0.1 mg Tablet PO ×2 (09:12→15:16)
[2022-11-07 14:00] VITALS: BP 155/96; PULSE 75; RESP 18; TEMP 36.6; O2SAT 98
[2022-11-07 15:16] VITALS: BP 155/96
--- NOTE | 2022-11-07 15:18 | PC.NURSE ---
PT BLOOD PRESSURE IS 155/95 CLONIDINE 0.1MG WAS GIVEN ORDERED FOR INCREASED BP. NEW ORDERS FOR MEDICAL CONSULT WAS RECEIVED DUE TO HYPERTENSION AND REPORTS OF GOUT IN BILATERAL FEET. DR. WINSTON WAS NOTIFIED AND MESSAGE WAS LEFT. PT CONTINUES TO USE THE WALL TO ASSIST HIM IN WALKING. IT IN OBSERVED HE IS HAVING DIFFICULTY WALKING WITHOUT USING FURNITURE OF THE WALL. NEW ORDERS WERE RECEIVED FOR PT CONSULT AND TREAT DUE TO DIFFICULTY WITH AMBULATION. ORDERS PLACED. PT NOTIFIED OF NEW ORDERS. EDUCATION PROVIDED. VERBALIZED UNDERSTANDING.
--- NOTE | 2022-11-07 15:37 | PC.NURSE ---
RECEIVED NEW ORDERS FROM DR. CHILDERS TO GIVE PT 2 MG ATIVAN PO NOW. ORDERS PLACED. PT EDUCATED ON NEW ORDERS. VERBALIZED UNDERSTANDING.
[2022-11-07] MEDS: LORazepam 2 mg Tablet PO (15:56)
--- NOTE | 2022-11-07 16:31 | XR_ITS ---
WS: [id number] LEFT FOOT: 2 VIEW(S) TECHNIQUE: AP and lateral. HISTORY: pain COMPARISON: None available. No acute fracture or dislocation. Normal tarsal/metatarsal alignment. Mild narrowing of the first IP joint with osteophyte formation. No erosions. Mild soft tissue edema surrounding the foot. IMPRESSION: Mild osteoarthritic changes first IP joint. Mild soft tissue edema surrounding the foot. If there is a history of trauma consider additional obli que imaging or CT of the left foot to better visualize the proximal metatarsals. Metatarsals are over lapping without oblique imaging. No explanation for the soft tissue edema radiographically.
--- NOTE | 2022-11-07 16:31 | XR_ITS ---
WS: [id number] RIGHT FOOT: 2 VIEW(S) TECHNIQUE: AP and lateral. HISTORY: pain COMPARISON: None available. No acute fracture or dislocation. Normal tarsal/metatarsal alignment. No soft tissue abnormality or bone destruction. IMPRESSION: Normal RIGHT foot.
--- NOTE | 2022-11-07 16:33 | PM.CONSULT ---
Providers/Reason For Consult Consulting Physician/Specialty*: Psychiatry Reason for Consult*: Blood pressure Attending Physician: Kennedy Goss MD Primary Care Provider: Yumi Mehta MD History of Present Illness History of Present Illness John Paul Rodríguez is a 36 year old male with a past medical history of alcoholism, who presents to [facility] neuropsychiatric unit for alcohol intoxication, suicidal ideation. Hospitalist team was called as patient's blood pressures been elevated, he denies any chest pain, no palpitations, no headache, blurry vision, no history of strokes, no history of CAD, does report a history of alcoholism, does report a history of alcohol withdrawal, no hospitalization for alcohol withdrawal, denies any IV drug use, he tells me that he has a gouty attack, his left foot is hurting him, the big toe, also his right foot is hurting him, he tends to walk barefoot, no history of cellulitis, no history of diabetes, no abdominal pain, no nausea, vomiting, he tells me that he regularly drinks alcohol, last drink was before he came to the hospital, Review of Systems Const: Denies: fever(s) or chills Eyes: Denies: change in vision Card: Denies: chest pain or palpitations Resp: Denies: dyspnea GI: Denies: abdominal pain : Denies: flank pain Musc: Reports: joint pain; Denies: neck pain or back pain Skin/Breast: Reports: rash Neuro: Denies: headache(s) Psych: Denies: anxiety Medications/Allergies Home Medications Medication Instructions Recorded Confirmed Last Taken Type aspirin 81 mg tablet,delayed 81 mg PO BEDTIME 09/20/20 11/06/22 09/19/20 History release ibuprofen 200 mg tablet 400 mg PO PRN 09/20/20 11/06/22 Unknown History Allergies Allergy/AdvReac Type Severity Reaction Status Date / Time mmr shot Allergy Unknown Uncoded 09/20/20 12:44 Current Medications Generic Name Dose Route Start Last Admin Trade Name Freq PRN Reason Stop Dose Admin Clonidine HCl 0.1 mg 11/06/22 20:08 11/07/22 15:16 Clonidine 0.1 Mg Tablet PO 0.1 mg Q6H PRN Administration HYPERTENSION Folic Acid 1 mg 11/07/22 09:00 11/07/22 09:02 Folic Acid 1 Mg Tablet PO 1 mg DAILY RY Administration Haloperidol 5 mg 11/06/22 09:42 11/07/22 09:03 Haloperidol 5 Mg Tablet PO 5 mg Q4H PRN Administration AGITATION Hydroxyzine Pamoate 50 mg 11/06/22 09:42 11/06/22 12:21 Hydroxyzine 25 Mg Capsule PO 50 mg Q6H PRN Administration ANXIETY Ibuprofen 600 mg 11/06/22 16:45 11/07/22 09:02 Ibuprofen 600 Mg Tablet PO 600 mg Q6H PRN Administration MODERATE PAIN Multivitamins Therapeutic 1 tab 11/07/22 09:00 11/07/22 09:02 Multivitamin Therapeutic Tablet PO 1 tab DAILY RY Administration Olanzapine 5 mg 11/06/22 09:42 11/06/22 12:21 Olanzapine 5 Mg Odt PO 5 mg Q4H PRN Administration Agitation/Psychosis Ondansetron HCl 4 mg 11/06/22 09:42 11/06/22 12:22 Ondansetron 4 Mg Tablet PO 4 mg Q6H PRN Administration NAUSEA AND VOMITING Thiamine Mononitrate 100 mg 11/07/22 09:00 11/07/22 09:03 Thiamine 100 Mg Tablet PO 100 mg DAILY RY Administration PFSH Acute PFSH: Medical History (Updated 11/07/22 @ 16:39 by Augusto Bradford MD) History of alcoholism Surgical History (Updated 11/07/22 @ 16:36 by Augusto Bradford MD) History of appendectomy Social History Smoking and tobacco status: never smoked Alcohol intake: current Alcohol intake frequency: few times a week Substance/Drug Use: never Vitals/I&O/Wt Last Vital Signs Temp 97.9 F 11/07/22 14:00 Pulse 75 11/07/22 14:00 Resp 18 11/07/22 14:00 BP 155/96 11/07/22 15:16 Pulse Ox 98 11/07/22 14:00 O2 Del Method Room Air 11/07/22 06:00 Weight last 48 hrs Weight 113.398 kg Physical Exam Const: COMMON NORMALS: no acute distress and patient oriented x3 GENERAL APPEARANCE: cooperative HENMT: COMMON NORMALS: normocephalic and Normal external nose present HEAD & SCALP: normocephalic FACE & SINUS: normal facial exam NOSE: Normal external nose present Eye: COMMON NORMALS: Equal, round and reactive pupils present, EOMs intact bilaterally and no scleral icterus PUPIL: Yes Equal, round and reactive pupils present Neck/C-Spine: COMMON NORMALS: full ROM, Thyroid normal and No carotid bruits THYROID: Thyroid normal Lymph: LYMPHATIC: no lymphadenopathy noted Chest: COMMONS NORMALS: normal inspection of the chest Resp: COMMON NORMALS: normal respiratory effort, No retractions, No use of accessory muscles and clear to auscultation bilaterally AUSCULTATION: clear to auscultation bilaterally Cardio: COMMON NORMALS: regular rate, regular rhythm, S1 normal heart sound present, S2 normal heart sound present, No murmurs present (Cardio) and Peripheral pulses 2+ throughout RATE: regular rate RHYTHM: regular rhythm HEART SOUNDS: S1 normal heart sound present and S2 normal heart sound present PERIPHERAL PULSES: Peripheral pulses 2+ throughout GI: COMMON NORMALS: Normal to inspection, nondistended, normoactive bowel sounds present, Soft to palpation, non-tender and No hepatosplenomegaly present PALPATION: Yes Soft to palpation and Yes No hepatosplenomegaly present Extremity: COMMON NORMALS: normal to inspection, full ROM, no calf tenderness and no pedal edema Neuro: COMMON NORMALS: patient oriented x3, CN's II-XII intact bilaterally, moves all extremities, no focal motor deficits and no sensory deficits noted Psych: COMMON NORMALS: mental status grossly normal, Normal thought process present, cooperative and speech normal SPEECH: Yes normal speech THOUGHT PROCESS: Normal thought process present Skin: COMMON NORMALS: turgor normal and no jaundice GENERAL SKIN EXAM: turgor normal Data 11/05/22 22:41 11/05/22 22:41 A&P Assessment and plan (1) Alcohol abuse with withdrawal: (2) Hypertensive urgency: (3) Gouty arthritis: Plan Alcohol abuse with withdrawal -[facility] protocol Hypertensive urgency, no chest pain, shortness of breath, no strokelike symptoms, no no history of CKD -Potentially related to alcohol abuse -We will order CBC, CMP, CRP, TSH, A1c -Norvasc 5 mg once daily Gouty arthritis -Continue ibuprofen -We will order prednisone 40 mg once daily Ordered A1c, TSH, CBC, CMP, x-rays of bilateral feet, CRP, CBC, CMP drug screen ESR, A1c, lipase, monitor blood pressures continue B12, Gas-X, thiamine, add Norvasc Consult Attestations Medical Necessity Statement: Patient requires hospitalization for alcohol abuse withdrawal, hypertensive urgency acute gastroenteritis Diagnoses Alcohol abuse with withdrawal F10.139 Hypertensive urgency I16.0 Gouty arthritis M10.9
[2022-11-07] MEDS: predniSONE 20 mg Tablet 40 MG PO (17:17)
[2022-11-07] MEDS: amlodipine 5 mg Tablet PO (17:17)
[2022-11-07 18:49] LABS: Basophils # 0.1 10^3/uL (0.0-0.1); Basophils % 0.8 %; Eosinophils # 0.2 10^3/uL (0.0-0.8); Eosinophils % 2.7 %; Hematocrit 40.1 % (42.0-52.0); Lymphocytes # 1.7 10^3/uL (0.8-4.8); Mean Corpuscular HGB Conc 34.9 g/dL (30.0-36.0); Mean Corpuscular Hemoglobin 33.3 pg (28.0-34.0); Mean Corpuscular Volume 95.5 fl (80-94); Mean Platelet Volume 8.6 fL (7.4-10.4); Monocytes # 0.6 10^3/uL (0.2-0.9); Monocytes % 7.9 %; Neutrophils # 5.23 10^3/uL (1.8-7.7); Neutrophils % 66.3 %; Nucleated Red Blood Cells % 0 %; Platelet Count 257 10^3/cmm (130-400); Red Cell Distribution Width 12.7 % (12.1-15.1); White Blood Count 7.9 10^3/uL (4.0-10.0)
[2022-11-07 18:51] LABS: Erythrocyte Sedimentation Rate 12 mm/hr (0-10)
[2022-11-07 19:19] LABS: Alanine Aminotransferase 43 U/L (0-41); Albumin Level 3.8 g/dL (3.5-5.2); Alkaline Phosphatase 66 U/L (40-130); Anion Gap 14.2 (5-19); Aspartate Amino Transferase 37 U/L (0-40); Blood Urea Nitrogen 9 mg/dL (6-20); C Reactive Protein 62.3 mg/L (0.0-4.9); Calcium 9.1 mg/dL (8.5-10.5); Carbon Dioxide 27 mmol/L (22-29); Chloride 103 mmol/L (98-107); Chol HDL Ratio 5.37 mg/dL (1.0-5.00); Cholesterol 161 mg/dL (0-200); Creatinine Clr Calc Pharmacy 140.3432; Globulin 2.5 g/dL (1.3-4.6); Glomerular Filtration Rate 94.4 mL/min (90-130); Glucose 108 mg/dL (65-115); HDL Cholesterol 30 mg/dL (60-100); LDL Cholesterol Calculated 70 mg/dL (50-129); LDL HDL Ratio 2.33 RATIO (0.00-3.22); Lipase 34 U/L (13-60); Osmolality Calculated 289 mOsm/kg (285-295); Potassium 4.2 mmol/L (3.5-5.1); Sodium 140 mmol/L (136-145); Thyroid Stimulating Hormone 2.06 uIU/mL (0.27-4.20); Total Bilirubin 1.1 mg/dL (0.15-1.2); Total Protein 6.3 g/dL (6.6-8.7); Triglycerides 305 mg/dL (0-150); Uric Acid 7.9 mg/dL (3.4-7.0)
[2022-11-07 22:00] VITALS: BP 124/84; PULSE 73; RESP 16; O2SAT 94
[2022-11-08 01:12] LABS: Estmated Average Glucose 114; Hemoglobin A1C 5.6 % (4.0-6.0)
[2022-11-08 06:00] VITALS: BP 141/72; PULSE 91; RESP 16; TEMP 37.1; O2SAT 92
--- NOTE | 2022-11-08 08:32 | W.PM.NPUPNS ---
Subjective NPU Subjective: Patient presented today reporting that he may be feeling a little bit better. He reported interventions from the hospitalist are taking some of his pain away and that he is feeling a bit better from the standpoint of withdrawal symptoms. He denied any side effects or problems from the Prozac and reports feeling a little less irritable. Mental Status Exam MSE Comments: This is an overweight versus obese white male, in hospital scrubs, with limited grooming and eye contact. Very large sifuentes and overall unkempt appearance. No abnormal movements except for significant psychomotor retardation. Cooperative with exam in mild distress. Speech was decreased rate and volume. Mood described as feeling a little bit better I think; affect congruent. Thought process, organized. Thought content: patient denied any suicidal or homicidal ideation, there were no delusions reported or noted, patient denied any auditory or visual hallucinations. Attention, concentration, and memory appeared intact, but none were formally tested. Alert and oriented times three. Insight and judgment are limited. Impulse control is impaired Vitals/I&O/Wt Last Vital Signs Temp 98.7 F 11/08/22 06:00 Pulse 91 11/08/22 06:00 Resp 16 11/08/22 06:00 BP 141/72 11/08/22 06:00 Pulse Ox 92 11/08/22 06:00 O2 Del Method Room Air 11/08/22 06:00 Data NPU 11/07/22 18:40 11/07/22 18:40 A&P Assessment and plan (1) Gouty arthritis: (2) Hypertensive urgency: (3) Suicidal ideation: (4) Alcohol intoxication: (5) Major depressive disorder: (6) Bereavement: (7) Alcohol use disorder, severe, dependence: Plan This is a 36, almost 37-year-old, white male, who presents after having an incident where he was intoxicated and made suicidal threats, who is open to a trial of medication for depression. 1. Started Prozac 20 mg p.o. every morning. 2. Encourage individual, group, and milieu therapy. 3. Continue q-15-minute checks for safety. 4. Recommend sober living treatment at the highest level of care to which the patient is willing to commit. Involuntary Hold Information 96 Hour Hold: 96 Hour Involuntary Admission: Yes 96 Hour Hold Ending Date: 11/11/22 96 Hour Hold Ending Time: 23:00 Attestations NPU Medical Necessity Statement*: Inpatient hospitalization is medically necessary and the clinically appropriate intervention, at this time. We will monitor medications and make changes as indicated. Likely length of stay is 3-5 days. Coding Level of Care Code Acute Code for [facility] Fwd Diagnoses Gouty arthritis M10.9 Hypertensive urgency I16.0 Suicidal ideation R45.851 Alcohol intoxication F10.929 Major depressive disorder F32.9 Bereavement Z63.4 Alcohol use disorder, severe, dependence F10.20
[2022-11-08] MEDS: predniSONE 20 mg Tablet 40 MG PO (08:46)
[2022-11-08] MEDS: thiamine 100 mg Tablet PO (08:46)
[2022-11-08] MEDS: acetaminophen 325 mg Tablet 650 MG PO (08:46)
[2022-11-08] MEDS: folic acid 1 mg Tablet PO (08:46)
[2022-11-08] MEDS: amlodipine 5 mg Tablet PO (08:46)
[2022-11-08] MEDS: multivitamin therapeutic Tablet 1 TAB PO (08:46)
[2022-11-08 10:23] LABS: Amphetamines Screen Urine Negative (Negative); Barbiturates Screen Urine Negative (Negative); Benzodiazepines Screen Urine Positive (Negative); Cocaine Screen Urine Negative (Negative); Opiate Screen Urine Negative (Negative); PCP Screen Urine Negative (Negative); THC Screen Urine Negative (Negative)
[2022-11-08] MEDS: fluoxetine 20 mg Capsule PO (11:39)
[2022-11-08 14:00] VITALS: BP 152/84; PULSE 87; RESP 15; TEMP 36.8; O2SAT 97
--- NOTE | 2022-11-08 16:40 | P.PN_ITS ---
Subjective Subjective: Patient was seen this morning, he tells me that his pain is significantly improved, discussed alcohol cessation, especially given his hypertriglyceridemia and his gouty attack he voiced understanding Vitals/I&O/Wt Last Vital Signs Temp 98.2 F 11/08/22 14:00 Pulse 87 11/08/22 14:00 Resp 15 11/08/22 14:00 BP 152/84 11/08/22 14:00 Pulse Ox 97 11/08/22 14:00 O2 Del Method Room Air 11/08/22 06:00 Physical Exam Const: COMMON NORMALS: no acute distress and patient oriented x3 Resp: COMMON NORMALS: normal respiratory effort, No retractions, No use of accessory muscles and clear to auscultation bilaterally AUSCULTATION: clear to auscultation bilaterally Cardio: COMMON NORMALS: regular rate, regular rhythm, S1 normal heart sound present and S2 normal heart sound present RATE: regular rate RHYTHM: regul ar rhythm HEART SOUNDS: S1 normal heart sound present and S2 normal heart sound present GI: COMMON NORMALS: Normal to inspection, nondistended, normoactive bowel sounds present and non-tender Extremity: COMMON NORMALS: no pedal edema Neuro: COMMON NORMALS: patient oriented x3 Psych: COMMON NORMALS: mental status grossly normal Data 11/07/22 18:40 11/07/22 18:40 A&P Assessment and plan (1) Alcohol abuse with withdrawal: (2) Hypertensive urgency: (3) Gouty arthritis: Plan Alcohol abuse with withdrawal -[facility] protocol Hypertensive urgency, no chest pain, shortness of breath, no strokelike symptoms, no no history of CKD -Potentially related to alcohol abuse -Norvasc 5 mg once daily Gouty arthritis -Continue ibuprofen -We will order prednisone 40 mg once daily Hypertriglyceridemia, alcohol cessation Increase Norvasc to 10 mg once daily Attestations Medical Necessity Statement*: Patient requires hospitalization for hypertension, hypertriglyceridemia, gouty attack Diagnoses Alcohol abuse with withdrawal F10.139 Hypertensive urgency I16.0 Gouty arthritis M10.9
[2022-11-08 21:40] VITALS: BP 151/88; PULSE 106; RESP 20; TEMP 36.7; O2SAT 94
[2022-11-08] MEDS: ibuprofen 600 mg Tablet PO (23:11)
[2022-11-09 06:00] VITALS: BP 154/93; PULSE 104; RESP 19; TEMP 37.2; O2SAT 94
[2022-11-09] MEDS: amlodipine 10 mg Tablet PO (08:29)
[2022-11-09] MEDS: fluoxetine 20 mg Capsule PO (08:29)
[2022-11-09] MEDS: multivitamin therapeutic Tablet 1 TAB PO (08:29)
[2022-11-09] MEDS: thiamine 100 mg Tablet PO (08:29)
[2022-11-09] MEDS: folic acid 1 mg Tablet PO (08:29)
[2022-11-09] MEDS: predniSONE 20 mg Tablet 40 MG PO (08:29)
--- NOTE | 2022-11-09 10:02 | W.PM.NPUPNS ---
Subjective NPU Subjective: Patient presented today reporting that he is having slow but steady improvement. He denies any side effects from the Prozac. He reports that things are going better as far as his withdrawal symptoms. He does acknowledge that his blood pressure remains elevated and is happy that the hospitalists are involved as he wants to make sure his blood pressure is under control or at least going the right direction before discharge. We discussed the treatment team being here tomorrow and working on appropriate follow-up. Mental Status Exam MSE Comments: This is an overweight versus obese white male, in hospital scrubs, with limited grooming and eye contact. Very large sifuentes and overall unkempt appearance. No abnormal movements except for mild psychomotor retardation. Cooperative with exam in mild distress. Speech was decreased rate and volume. Mood described as feeling a little bit better I think; affect congruent. Thought process, organized. Thought content: patient denied any suicidal or homicidal ideation, there were no delusions reported or noted, patient denied any auditory or visual hallucinations. Attention, concentration, and memory appeared intact, but none were formally tested. Alert and oriented times three. Insight and judgment are limited. Impulse control is impaired Vitals/I&O/Wt Last Vital Signs Temp 98.3 F 11/09/22 14:00 Pulse 104 H 11/09/22 14:00 Resp 16 11/09/22 14:00 BP 168/93 11/09/22 14:00 Pulse Ox 95 11/09/22 14:00 O2 Del Method Room Air 11/09/22 14:00 Weight last 48 hrs Weight 102.285 kg Weight 102.285 kg Data NPU 11/07/22 18:40 11/07/22 18:40 A&P Assessment and plan (1) Gouty arthritis: (2) Hypertensive urgency: (3) Suicidal ideation: (4) Alcohol intoxication: (5) Major depressive disorder: (6) Bereavement: (7) Alcohol use disorder, severe, dependence: Plan This is a 36, almost 37-year-old, white male, who presents after having an incident where he was intoxicated and made suicidal threats, who is open to a trial of medication for depression. 1. Started Prozac 20 mg p.o. every morning. 2. Encourage individual, group, and milieu therapy. 3. Continue q-15-minute checks for safety. 4. Recommend sober living treatment at the highest level of care to which the patient is willing to commit. Involuntary Hold Information 96 Hour Hold: 96 Hour Involuntary Admission: Yes 96 Hour Hold Ending Date: 11/11/22 96 Hour Hold Ending Time: 23:00 Attestations NPU Medical Necessity Statement*: Inpatient hospitalization is medically necessary and the clinically appropriate intervention, at this time. We will monitor medications and make changes as indicated. Likely length of stay is 2-4 days. Coding Level of Care Code Acute Code for g Fwd Diagnoses Gouty arthritis M10.9 Hypertensive urgency I16.0 Suicidal ideation R45.851 Alcohol intoxication F10.929 Major depressive disorder F32.9 Bereavement Z63.4 Alcohol use disorder, severe, dependence F10.20
[2022-11-09 14:00] VITALS: BP 168/93; PULSE 104; RESP 16; TEMP 36.8; O2SAT 95
[2022-11-09] MEDS: nicotine 2 mg Gum BUCCAL (18:05)
[2022-11-09 22:00] VITALS: BP 155/91; PULSE 118; RESP 19; TEMP 36.8; O2SAT 95
[2022-11-10 06:00] VITALS: BP 172/95; PULSE 74; RESP 16; TEMP 36.8; O2SAT 96
[2022-11-10] MEDS: fluoxetine 20 mg Capsule PO (08:10)
[2022-11-10] MEDS: thiamine 100 mg Tablet PO (08:10)
[2022-11-10] MEDS: folic acid 1 mg Tablet PO (08:10)
[2022-11-10] MEDS: multivitamin therapeutic Tablet 1 TAB PO (08:10)
[2022-11-10] MEDS: predniSONE 20 mg Tablet 40 MG PO (08:10)
[2022-11-10] MEDS: amlodipine 10 mg Tablet PO (08:10)
--- NOTE | 2022-11-10 08:42 | PC.NURSE ---
pt currently denies si/hi/ah/vh. pt stated to this nurse I actually feel fantastic this morning. pt was willing and cooperative with medications and assessment. pt current needs are met.
[2022-11-10] MEDS: nicotine 2 mg Gum BUCCAL ×3 (09:15→18:12)
[2022-11-10 14:00] VITALS: BP 154/89; PULSE 121; RESP 18; TEMP 36.6; O2SAT 95
--- NOTE | 2022-11-10 18:57 | W.PM.NPUPNS ---
Subjective NPU Subjective: Patient presented today reporting that he is feeling a bit better. We continue to discuss his elevated blood pressures which is likely do not represent withdrawal phenomenon. We discussed considering a medication for his blood pressure. He is considering. We discussed his hold being over tomorrow and us having no plan to extend his hold. We discussed the likelihood of discharge tomorrow. Mental Status Exam MSE Comments: This is an overweight versus obese white male, in hospital scrubs, with limited grooming and eye contact. Very large sifuentes and overall unkempt appearance. No abnormal movements. Cooperative with exam in no acute distress. Speech was more normal rate and volume. Mood described as feeling better; affect congruent. Thought process, organized. Thought content: patient denied any suicidal or homicidal ideation, there were no delusions reported or noted, patient denied any auditory or visual hallucinations. Attention, concentration, and memory appeared intact, but none were formally tested. Alert and oriented times three. Insight and judgment are limited. Impulse control is impaired Vitals/I&O/Wt Last Vital Signs Temp 98.2 F 11/10/22 20:19 Pulse 107 H 11/10/22 20:19 Resp 18 11/10/22 20:19 BP 175/90 11/10/22 20:19 Pulse Ox 96 11/10/22 20:19 O2 Del Method Room Air 11/10/22 06:00 Data NPU 11/07/22 18:40 11/07/22 18:40 A&P Assessment and plan (1) Gouty arthritis: (2) Hypertensive urgency: (3) Suicidal ideation: (4) Alcohol intoxication: (5) Major depressive disorder: (6) Bereavement: (7) Alcohol use disorder, severe, dependence: Plan This is a 36, almost 37-year-old, white male, who presents after having an incident where he was intoxicated and made suicidal threats, who is open to a trial of medication for depression. 1. Started Prozac 20 mg p.o. every morning. 2. Encourage individual, group, and milieu therapy. 3. Continue q-15-minute checks for safety. 4. Recommend sober living treatment at the highest level of care to which the patient is willing to commit. 5. We will likely start an antihypertensive with the hospitalist hal versus consult. Involuntary Hold Information 96 Hour Hold: 96 Hour Involuntary Admission: Yes 96 Hour Hold Ending Date: 11/11/22 96 Hour Hold Ending Time: 23:00 Attestations NPU Medical Necessity Statement*: Inpatient hospitalization is medically necessary and the clinically appropriate intervention, at this time. We will monitor medications and make changes as indicated. Likely length of stay is 1-3 days. Coding Level of Care Code Acute Code for g Fwd Diagnoses Gouty arthritis M10.9 Hypertensive urgency I16.0 Suicidal ideation R45.851 Alcohol intoxication F10.929 Major depressive disorder F32.9 Bereavement Z63.4 Alcohol use disorder, severe, dependence F10.20
[2022-11-10] MEDS: trazodone 50 mg Tablet PO (20:00)
[2022-11-10 20:19] VITALS: BP 175/90; PULSE 107; RESP 18; TEMP 36.8; O2SAT 96
[2022-11-11 06:00] VITALS: BP 146/88; PULSE 70; RESP 16; O2SAT 97
[2022-11-11] MEDS: fluoxetine 20 mg Capsule PO (08:24)
[2022-11-11] MEDS: folic acid 1 mg Tablet PO (08:24)
[2022-11-11] MEDS: amlodipine 10 mg Tablet PO (08:24)
[2022-11-11] MEDS: thiamine 100 mg Tablet PO (08:24)
[2022-11-11] MEDS: multivitamin therapeutic Tablet 1 TAB PO (08:24)
[2022-11-11] MEDS: predniSONE 20 mg Tablet 40 MG PO (08:24)
[2022-11-11] MEDS: nicotine 2 mg Gum BUCCAL (12:52)
--- NOTE | 2022-11-11 13:44 | P.NPUDS_ITS ---
Diagnoses at Discharge Discharge Diagnosis (1) Gouty arthritis: Status: Acute (2) Hypertensive urgency: Status: Acute (3) Suicidal ideation: Status: Resolved (4) Alcohol intoxication: Status: Resolved (5) Major depressive disorder: Status: Acute (6) Bereavement: Status: Acute (7) Alcohol use disorder, severe, dependence: Status: Acute Reason for Visit Reason for Visit: SI/ETOH Brief History: History of Present Illness John Paul Rodríguez is a 36 year old male who presented to the emergency department with the following report: Chief Complaint: Psychiatric Symptoms Stated Complaint: SI/ETOH Time Seen by Provider: 11/05/22 22:35 Source: patient and EMS Mode of arrival: EMS Limitations: no limitations History of Present Illness: 28-year-old male who is here by EMS been drinking heavily over the last 24 hours per EMS he is drank three quarters of a bottle of whiskey per EMS family called because he states he is in a kill himself and had a gun and put it in his mouth. Per EMS he was combative in route they had to give him 2 of Ativan he is now sedated he is answering some questions but will not answer many at this time. Associated symptoms: Reports depression and suicidal ideation The patient was admitted to the neuropsychiatric unit for definitive treatment of those issues. The patient presents reporting that he is not on psychiatric medications and has not had previous psychiatric hospitalizations. He denies outpatient services. He reports that he is here on a 96-hour hold secondary to getting intoxicated and making suicidal statements. The patient reports that he chews tobacco, about a can a day. He reports that he drinks alcohol daily, about a full bottle a day. He denies marijuana, cocaine, methamphetamine, opiates, or any other illicit drug use. He denies DUI or other drug related charges. He reports that recently he has had some depression. He endorses feelings of hopelessness, helplessness, worthlessness, sleep difficulties, loss of enjoyment, and passive wish. He denies previous suicidal thoughts, until this time being drunk. He endorses that he had a gun and put it in his mouth. He denies self-injurious behavior. He denies paranoia or auditory or visual hallucinations. He denies nightmares or flashbacks from trauma. We discussed that he is currently on CIWA protocol. And we discussed concerns about hypertension that we are monitoring. We discussed the risks, benefits, and alternatives of trying something, like Prozac, for depression, and he understood and agreed to proceed as is documented in this note. PSYCHIATRIC HISTORY: As above. SUBSTANCE ABUSE HISTORY: As above. FAMILY HISTORY: The patient reports that he had a cousin, on dad?s side of the family, with mental health issues. He reports that his father was an alcoholic. He denies suicide attempts or completions in the family. DEVELOPMENTAL HISTORY: The patient denies any issues with his mother?s or delivery of him. He learned to walk and talk and met developmental milestones on time. The patient denies speech therapy, learning support, emotional support, or special education classes. PSYCHOSOCIAL HISTORY: The patient reports that mother and father were together when he was born and remain together. He reports that he has a younger sister from that same union. He denies any other children. He describes his childhood as pretty normal. He denies any neglect, or emotional, physical, or sexual abuse. He denies CYS involvement. He denies any childhood traumas. He reports that his sister passed on in 2014. She had meningitis and had a headache on Thursday and by Thursday, , they pronounced her brain . A year later his grandfather on the same day. He reports that his sister?s birthday is coming up. He reports that he graduated from high school. He reports that he took a couple college courses. He endorses being heterosexual, with his longest relationship being almost eleven years. He has been once and once. He reports that he has three biological children, 14 and 16 year old boys, and a 12 year old girl. He denies service. He denies a buddhist belief system. He reports that his longest job was about three and a half years. He reports that he currently works for [employer]. He reports that he currently lives in a house he is renting with his three children. Their mother lives in [place], [place]. LEGAL HISTORY: Denied. MEDICAL HISTORY: Denied. The patient reports allergy to MMR shot and lavender. Hospital Course Hospital Course He slowly acclimated to the individual, group and milieu therapies provided.? He presented having had significant depression and suicidality as well as alcohol use disorder severe. He was open to starting Prozac and allowing us to treat his alcohol withdrawal with a [facility] protocol. Hypertension identified initially as part of his withdrawal phenomenon but then it became clear that it was an ongoing situation. Additionally he had pain consistent with gout which was identified through a hospitalist consult which also helped manage the hypertension. He was able to work with the social work team to identify outpatient/aftercare resources for treatment. He had significant improvement and was able to contract for safety outside of the hospital prior to discharge.? During the hospitalization, patient had routine laboratory studies which were within normal limits except for few outliers those of concern were managed by the hospitalist.? Additionally there was a general medical evaluation which was also within normal limits and revealed no new acute processes except for those mentioned above which were managed by the hospitalist. At the time of discharge, he denied psychosis or lethality.? Mood and anxiety were well managed.? Patient endorsed a plan to avoid all drugs of abuse and follow-up with the aftercare recommendations of the treatment team.? Patient was evaluated and deemed to be absent credible lethality, and had achieved the maximum benefit from an inpatient hospitalization, so was discharged.? Involuntary Hold Information 96 Hour Hold: 96 Hour Involuntary Admission: Yes 96 Hour Hold Ending Date: 11/11/22 96 Hour Hold Ending Time: 23:00 Mental Status Exam MSE Comments: This is an overweight versus obese white male, in hospital scrubs, with limited grooming and eye contact. Very large sifuentes and overall unkempt appearance. No abnormal movements. Cooperative with exam in no acute distress. Speech was more normal rate and volume. Mood described as feeling better; affect congruent. Thought process, organized. Thought content: patient denied any suicidal or homicidal ideation, there were no delusions reported or noted, patient denied any auditory or visual hallucinations. Attention, concentration, and memory appeared intact, but none were formally tested. Alert and oriented times three. Insight and judgment are limited. Impulse control is impaired Discharge Data Studies Completed and Pending: Completed Studies During Hospitalization Category Date Time Status CXRP [XR chest 1V portable [id number]] S tat Exams 11/06/22 02:35 Completed XR foot LT 2V 736 20 Routine Exams 11/07/22 16:31 Completed XR foot RT 2V 736 20 Routine Exams 11/07/22 16:31 Completed Radiology Impressions Chest X-Ray 11/06/22 02:35 IMPRESSION: 1. No definite CHF or pneumonia. 2. Other findings discussed above. Laboratory Results WBC 7.9 10^3/uL (4.0- 10.0) 11/07/22 18:40 RBC 4.20 10^6/uL (4.1 -5.3) 11/07/22 18:40 Hgb 14.0 g/dL (11.7-1 6.6) 11/07/22 18:40 Hct 40.1 % (42.0-52.0 ) L 11/07/22 18:40 MCV 95.5 fl (80-94) H 11/07/22 18:40 MCH 33.3 pg (28.0-34. 0) 11/07/22 18:40 MCHC 34.9 g/dL (30.0-3 6.0) 11/07/22 18:40 RDW 12.7 % (12.1-15.1 ) 11/07/22 18:40 Plt Count 257 10^3/cmm (130 -400) 11/07/22 18:40 MPV 8.6 fL (7.4-10.4) 11/07/22 18:40 Neut % (Auto) 66.3 % 11/07/22 18:40 Lymph % (Auto) 22.0 % 11/07/22 18:40 Putnam % (Auto) 7.9 % 11/07/22 18:40 Eos % (Auto) 2.7 % 11/07/22 18:40 Baso % (Auto) 0.8 % 11/07/22 18:40 Neut # (Auto) 5.23 10^3/uL (1.8 -7.7) 11/07/22 18:40 Lymph # (Auto) 1.7 10^3/uL (0.8- 4.8) 11/07/22 18:40 Putnam # (Auto) 0.6 10^3/uL (0.2- 0.9) 11/07/22 18:40 Eos # (Auto) 0.2 10^3/uL (0.0- 0.8) 11/07/22 18:40 Baso # (Auto) 0.1 10^3/uL (0.0- 0.1) 11/07/22 18:40 Nucleated RBC % (a uto) 0 % 11/07/22 18:40 Nucleated RBCs # 0.0 /100WBC 11/07/22 18:40 ESR 12 mm/hr (0-10) H 11/07/22 18:40 Sodium 140 mmol/L (136-1 45) 11/07/22 18:40 Potassium 4.2 mmol/L (3.5-5 .1) 11/07/22 18:40 Chloride 103 mmol/L (98-10 7) 11/07/22 18:40 Carbon Dioxide 27 mmol/L (22-29) 11/07/22 18:40 Anion Gap 14.2 (5-19) 11/07/22 18:40 BUN 9 mg/dL (6-20) 11/07/22 18:40 Creatinine 0.9 mg/dL (0.7-1. 2) 11/07/22 18:40 GFR Calculation 94.4 mL/min (90-1 30) 11/07/22 18:40 Glucose 108 mg/dL (65-115 ) 11/07/22 18:40 Estimat Average Gl ucose 114 11/07/22 18:40 Hemoglobin A1c 5.6 % (4.0-6.0) 11/07/22 18:40 Calculated Osmolal ity 289 mOsm/kg (285- 295) 11/07/22 18:40 Uric Acid 7.9 mg/dL (3.4-7. 0) H 11/07/22 18:40 Calcium 9.1 mg/dL (8.5-10 .5) 11/07/22 18:40 Total Bilirubin 1.1 mg/dL (0.15-1 .2) 11/07/22 18:40 AST 37 U/L (0-40) 11/07/22 18:40 ALT 43 U/L (0-41) H 11/07/22 18:40 Alkaline Phosphata se 66 U/L (40-130) 11/07/22 18:40 C-Reactive Protein 62.3 mg/L (0.0-4. 9) H 11/07/22 18:40 Total Protein 6.3 g/dL (6.6-8.7 ) L 11/07/22 18:40 Albumin 3.8 g/dL (3.5-5.2 ) 11/07/22 18:40 Globulin 2.5 g/dL (1.3-4.6 ) 11/07/22 18:40 Triglycerides 305 mg/dL (0-150) H 11/07/22 18:40 Cholesterol 161 mg/dL (0-200) 11/07/22 18:40 LDL Cholesterol, C alc 70 mg/dL (50-129) 11/07/22 18:40 HDL Cholesterol 30 mg/dL (60-100) L 11/07/22 18:40 LDL/HDL Ratio 2.33 RATIO (0.00- 3.22) 11/07/22 18:40 Cholesterol/HDL Ra tg 5.37 mg/dL (1.0-5 .00) H 11/07/22 18:40 Lipase 34 U/L (13-60) 11/07/22 18:40 TSH 2.06 uIU/mL (0.27 -4.20) 11/07/22 18:40 Salicylates 1.1 mg/dL (3-10) L 11/05/22 22:41 Urine Opiates Scre en Negative ng/mL (N egative) 11/08/22 09:27 Acetaminophen 6.9 ug/mL (10-30) L 11/05/22 22:41 Ur Barbiturates Sc reen Negative ng/mL (N egative) 11/08/22 09:27 Ur Phencyclidine S crn Negative ng/mL (N egative) 11/08/22 09:27 Ur Amphetamines Sc reen Negative ng/mL (N egative) 11/08/22 09:27 U Benzodiazepines Scrn Positive ng/mL (N egative) H 11/08/22 09:27 Urine Cocaine Scre en Negative ng/mL (N egative) 11/08/22 09:27 U Marijuana (THC) Screen Negative ng/mL (N egative) 11/08/22 09:27 Ethyl Alcohol 306 mg/dL (0-10) H* 11/05/22 22:41 Vitals: Last Vital Signs Temp 98.2 F 11/10/22 20:19 Pulse 70 11/11/22 06:00 Resp 16 11/11/22 06:00 BP 146/88 11/11/22 06:00 Pulse Ox 97 11/11/22 06:00 O2 Del Method Room Air 11/10/22 06:00 Discharge Plan Discharge Patient Disposition: Home Condition: Stable Prescriptions: New amlodipine 10 mg Tablet 10 mg PO DAILY 30 Days Qty: 30 1RF fluoxetine 20 mg Capsule 20 mg PO DAILY 30 Days Qty: 30 1RF Vitamin B-1 (mononitrate) 100 mg Tablet 100 mg PO DAILY 30 Days Qty: 30 1RF Continued aspirin 81 mg Tablet,Delayed Release (Dr/Ec) 81 mg PO BEDTIME ibuprofen 200 mg Tablet 400 mg PO PRN No Action trazodone 100 mg tablet 100 mg PO .qhs Qty: 30 2RF fenofibrate 160 mg tablet 160 mg PO DAILY Qty: 30 3RF allopurinol 100 mg tablet 100 mg PO DAILY Qty: 30 2RF Discharge Orders: Discharge Order (Routine); Ordered 11/11/22 Ordered By: Kennedy Goss Referrals: [facility] [place] [facility] [Outside] - 11/20/22 8:30 am [facility] [Outside] - 11/12/22 10:00 am (Arrive for [facility] by 10am.) Yumi Mehta MD [Primary Care Provider] - 11/20/22 3:00 pm Discharge Diet: Regular Discharge Activity: Resume usual activity Patient Instructions: Hydrochlorothiazide (By mouth), Trazodone (By mouth), Prednisone (By mouth), Amlodipine (By mouth), Opioid Safety Discharge Attestations NPU Time Spent in Discharge Care*: less than 30 min Specific Discharge Activities: Specific discharge activities: educating patient, discussing with therapeutic case manager/social workers/dc planners, documenting/other paperwork and evaluating patient/reviewing data Coding Level of Care Code Acute Chg FW DC note Diagnoses Gouty arthritis M10.9 Hypertensive urgency I16.0 Suicidal ideation R45.851 Alcohol intoxication F10.929 Major depressive disorder F32.9 Bereavement Z63.4 Alcohol use disorder, severe, dependence F10.20
[2022-11-11 13:53] VITALS: BP 146/88; BP 150/106; PULSE 112; PULSE 70; RESP 16; TEMP 36.6; O2SAT 96; O2SAT 97
[2022-11-11] MEDS: hydroCHLOROthiazide 25 mg Tablet PO (13:54)
== END 2022-11-11 14:48 | disposition home or self-care (01) | DRG 897 ==
LOC: ER 11-06 00:05 → NP 11-06 13:45
PROVIDERS: Family Medicine; Admitting Provider Psychiatry & Neurology Psychiatry; Emergency Provider Emergency Medicine; PCP Family Medicine; Visit Provider Psychiatry & Neurology Psychiatry
DX: F10.229 Alcohol dependence with intoxication, unspecified (principal); R45.851 Suicidal ideations; Y90.8 Blood alcohol level of 240 mg/100 ml or more; F17.220 Nicotine dependence, chewing tobacco, uncomplicated; Z81.1 Family history of alcohol abuse and dependence; I16.0 Hypertensive urgency; M10.9 Gout, unspecified; E78.1 Pure hyperglyceridemia; F32.A Depression, unspecified
CPT/HCPCS: 36415; 71045; 73620; 80053; 80061; 80306; 80307; 83036; 83690; 84443; 84550; 85025; 85651; 86140; 93005; 96372; 96374; 97161; 97165; 97530; 99238; 99285; J0360; J2405; J3411; J3490; J7030; J7512; Q0162

== ENCOUNTER → 2022-12-19 11:15 | Outpatient (BNVA) | payer MEDICAID, SELFPAY | PROVIDERS: PCP Family Medicine; Visit Provider Family Medicine | DX: I10 Essential (primary) hypertension (principal); M10.9 Gout, unspecified; G47.00 Insomnia, unspecified | CPT/HCPCS: 80053; 80061; 84550; 85025 ==

== ENCOUNTER 2023-03-19 06:18 | Outpatient (CLI) | payer BC, MEDICAID, SELFPAY ==
--- NOTE | 2023-03-19 06:45 | US_ITS ---
WS: [id number] Complete ABDOMINAL ULTRASOUND HISTORY: R10.11 - Right upper quadrant pain COMPARISON: 09/20/2020 Liver: 15.4 cm in length. Liver is measuring normal size. Diffuse coarse echotexture from hepatic isiah atosis. No mass or bile duct dilatation. Portal Vein: Normal hepatopetal flow with monophasic waveform. Gallbladder: Normally distended gallbladder with no stones or wall thickening. CBD: 0.6 cm Pancreas: Normal size and echogenicity. Right kidney: 12.1 cm x 6.0 x 6.0 cm. Cortex: 1.3 cm. Normal size and echogenicity. No hydronephrosis or mass. Left kidney: 12.7 cm x 5.8 cm x 6.5 cm. Cortex: 1.4 cm. Normal size and echogenicity. No hydronephrosis or mass. Spleen: Normal. Aorta and IVC: Unremarkable abdominal aorta and IVC. Impression: 1. Normal gallbladder. 2. Normal size liver with mild diffuse hepatic steatosis.
== END 2023-03-19 06:19 | disposition home or self-care (01) ==
LOC: RAD 06:19
PROVIDERS: PCP Family Medicine; Visit Provider Family Medicine
DX: R10.11 Right upper quadrant pain (principal); K76.0 Fatty (change of) liver, not elsewhere classified
CPT/HCPCS: 76700

== ENCOUNTER 2023-04-16 07:40 | Outpatient (CLI) | payer BC, MEDICAID, SELFPAY ==
--- NOTE | 2023-04-16 08:00 | NM_ITS ---
WS: [id number] NUCLEAR MEDICINE HIDA SCAN WITH GALLBLADDER EJECTION FRACTION HISTORY: ruq pain COMPARISON: Ultrasound 03/19/2023 TECHNIQUE: The patient was intravenously injected with 7.7 mCi of TC99m Mebrofenin. Immediate imaging over the right upper quadrant was followed by 5 minute image and additional images for a total of 60 minutes. Normal uptake of radiotracer throughout the liver. Activity identified in the gallbladder at 10 minutes and well distended by 60 minutes. Activity in the proximal small bowel was seen by 5 minutes. Good washout of the radiotracer from the liver by 60 minutes. The patient then drank 8 ounces of Ensure Plus. Ejection fraction at 60 minutes was 86%. Normal GB ej ection fraction is 35-75%. Post fatty meal symptoms: None. IMPRESSION: 1. Normal HIDA scan. 2. Normal gallbladder ejection fraction.
== END 2023-04-16 07:41 | disposition home or self-care (01) ==
LOC: RAD 07:41
PROVIDERS: PCP Family Medicine; Visit Provider Family Medicine
DX: R10.11 Right upper quadrant pain (principal)
CPT/HCPCS: 78227; A9537